=== PATIENT | female | born 1955 | race Caucasian/White ===

== ENCOUNTER 2017-08-13 11:59 | Emergency (ER) | payer MEDICARE ==
[2011-03-15 12:34] VITALS: BMI 43.7
[2017-08-16] MEDS ORDERED: ZOVIRAX400 MG PO (08:30)
[2017-08-16] MEDS ORDERED: NORVASC10 MG PO (08:33)
[2017-08-16] MEDS ORDERED: HYDROCODON-ACE1 EAC7 PO (08:33)
[2017-08-16] MEDS ORDERED: CEFPODOXIME PR200 MG PO (08:35)
[2017-08-16] MEDS ORDERED: CELEXA20 MG PO (08:37)
[2017-08-16] MEDS ORDERED: AMBIEN10 MG PO (08:37)
[2017-08-16] MEDS ORDERED: NEURONTIN600 MG PO (08:37)
[2017-08-16] MEDS ORDERED: LIPITOR20 MG PO (08:37)
[2017-08-16] MEDS ORDERED: LEVEMIR100 U/M1 SC (08:38)
[2017-08-16] MEDS ORDERED: NOVOLOG100 U/M1 SC (08:39)
[2017-08-16] MEDS ORDERED: ASPIRIN EC81 M1 PO (08:41)
== END 2017-08-13 13:30 | disposition home or self-care (01) ==
LOC: D.ER 11:59
DX: S52.502A Unspecified fracture of the lower end of left radius, initial encounter for closed fracture (principal); S52.202A Unspecified fracture of shaft of left ulna, initial encounter for closed fracture; W01.0XXA Fall on same level from slipping, tripping and stumbling without subsequent striking against object, initial encounter; Y93.89 Activity, other specified; Y92.019 Unspecified place in single-family (private) house as the place of occurrence of the external cause; E11.9 Type 2 diabetes mellitus without complications; Z79.4 Long term (current) use of insulin; I10 Essential (primary) hypertension

== ENCOUNTER 2017-08-17 08:09 | Day surgery (SDC) | payer MEDICARE ==
[~2017-08-17] VITALS: Ht 160 cm; Wt 99.8 kg
--- NOTE | ~2017-08-17 | OP ---
PATIENT NAME: MCKENNA GONZALES MEDICAL RECORD: [id number] :53 LOCATION:D.OPS ADMISSION DATE: SURGEON: NIKO MCELROY MD DATE OF OPERATION: 08/17/2017 PREOPERATIVE DIAGNOSES: Distal radius fracture with acute carpal tunnel syndrome. POSTOPERATIVE DIAGNOSES: Distal radius fracture with acute carpal tunnel syndrome. PROCEDURE: 1. Open reduction internal fixation of left distal radius. 2. Carpal tunnel release. SURGEON: Niko Mcelroy MD ANESTHESIA: General. INTRAOPERATIVE COMPLICATIONS: None. SUMMARY OF PATHOLOGIC FINDINGS: The patient preoperatively began to have numbness in her median nerve distribution. She had a comminuted distal radius fracture. OPERATIVE SUMMARY IN DETAIL: After the appropriate orthopedic surgery consent as well as anesthetic consultation, evaluation, and clearance, the patient was brought to the operating room and placed on the operating table in supine position. After general laryngeal mask was administered, tourniquet was placed about the proximal aspect of the left upper extremity. Left upper extremity was then prepped and draped in routine sterile fashion. The arm was elevated and exsanguinated and tourniquet was inflated to 250 mmHg. Constantino's volar approach was utilized including the incision into the palmar crease. The flexor carpi radialis was identified and used as a landmark. Dissection was then gently carried down, median nerve was identified and under direct visualization, the median nerve at the carpal tunnel was released. The dissection was then carried down to the fracture itself after good exposure of the fracture and reduction. Provisional transplate pinning was utilized to be sure that the fracture was aligned in both planes. Serial and sequential drill and fill technique was utilized with combination of both compression and locking screws to stabilize the fracture. Having completed this, AP and lateral views were submitted for final radiologist review. Wound was then copiously irrigated and closed with 2-0 Vicryl followed by 4-0 Prolene in running fashion. Sterile dressings were applied. Volar splint was applied. The patient was awakened and taken to the recovery room in stable condition. All final needle and sponge counts were correct. TRANSINT:[id number] Voice Confirmation ID: [id number] DOCUMENT ID: [id number] OPERATIVE REPORT [id number] HARI GONZALES MD, NIKO FUENTES at 1520 CC: [id number] DICTATION DATE: 08/24/17 0859 ANGULAR JS DEVELOPER: 08/24/17 1057 [facility] [place] 08/17/17 [facility] [address] [place] [address]
[~2017-08-17 08:09] MED LIST: AMBIEN10 MG PO; ASPIRIN EC81 M1 PO; CEFPODOXIME PR200 MG PO; CELEXA20 MG PO; HYDROCODON-ACE1 EAC7 PO; LEVEMIR100 U/M1 SC; LIPITOR20 MG PO; NEURONTIN600 MG PO; NORVASC10 MG PO; NOVOLOG100 U/M1 SC; ZOVIRAX400 MG PO
[2017-08-17 09:07] LABS: HEMATOCRIT 44.2 % (36.0-48.0); MCH 34.1 pg (26.0-34.0); MCHC 36.2 g/dL (31.0-37.0); MCV 94.2 fL (80.0-100.0); MEAN PLATELET VOLUME 11.8 fL (7.4-10.4); RBC 4.69 10x6/uL (4.00-5.40); RDW 12.9 % (11.5-14.5); WBC 7.6 10x3/uL (4.8-10.8)
[2017-08-17 09:24] LABS: ANION GAP 16.5 mmol/L (8-16); CALCIUM 8.9 mg/dL (8.5-10.1); CARBON DIOXIDE 26.1 mmol/L (21.0-32.0); CREATININE - SERUM 1.3 mg/dL (0.6-1.3); POTASSIUM - SERUM 3.6 mmol/L (3.5-5.1)
[2017-08-17 09:50] VITALS: BP 152/87; Ht 160 cm; Wt 99.8 kg
[2017-08-17] MEDS ORDERED: HYDROCODONE-APA1 TAB PO (13:59)
== END 2017-08-17 15:48 | disposition home or self-care (01) ==
LOC: D.OPS 08:09 → D.PAN 13:30 → D.OPS 13:30
PROVIDERS: Anesthesiology
DX: S52.502A Unspecified fracture of the lower end of left radius, initial encounter for closed fracture (principal); S52.601A Unspecified fracture of lower end of right ulna, initial encounter for closed fracture; I10 Essential (primary) hypertension; E11.9 Type 2 diabetes mellitus without complications; J44.9 Chronic obstructive pulmonary disease, unspecified; E66.01 Morbid (severe) obesity due to excess calories; Z68.39 Body mass index [BMI] 39.0-39.9, adult; Z01.812 Encounter for preprocedural laboratory examination; G56.02 Carpal tunnel syndrome, left upper limb

== ENCOUNTER 2017-12-14 17:44 | Emergency (ER) | payer MEDICARE ==
[~2017-12-14] VITALS: Ht 160 cm; Wt 90.9 kg
[~2017-12-14 17:44] MED LIST changes: +HYDROCODONE-APA1 TAB PO
[2017-12-14 17:47] VITALS: Ht 160 cm; Wt 90.9 kg
[2017-12-14] MEDS ORDERED: OXYCONTIN10 MG PO (17:48)
[2017-12-14 19:47] VITALS: BP 164/84
== END 2017-12-14 19:46 | disposition home or self-care (01) ==
LOC: D.ER 17:44
DX: S62.102A Fracture of unspecified carpal bone, left wrist, initial encounter for closed fracture (principal); W19.XXXA Unspecified fall, initial encounter; Y93.89 Activity, other specified; Y92.019 Unspecified place in single-family (private) house as the place of occurrence of the external cause; Z86.73 Personal history of transient ischemic attack (TIA), and cerebral infarction without residual deficits; E11.9 Type 2 diabetes mellitus without complications; I10 Essential (primary) hypertension; J44.9 Chronic obstructive pulmonary disease, unspecified; E28.2 Polycystic ovarian syndrome; Z85.528 Personal history of other malignant neoplasm of kidney